=== PATIENT | female | born 1950 | race Native Hawaiian/Other Pacific Islander ===

== ENCOUNTER → 2016-10-22 | Outpatient (CLI) | payer BC ==
[2016-10-22 16:25] LABS: Non-African American GFR(MDRD) >60 (>60 ml/min/1.73 sqM)
--- NOTE | 2016-10-22 21:57 | MR ---
EXAMINATION TYPE: MR angio head wo con DATE OF EXAM: 10/22/2016 5:31 PM COMPARISON: NONE HISTORY: Rt eye turned inward, dizziness, cranial nerve 6 palsy OD TECHNIQUE: Time of flight images focusing on the [place] were performed without contrast. FINDINGS: Source images are reviewed. Three-D rotating images are reviewed Right vertebral artery is not identified within the pzcju-ef-nsoi. Left vertebral artery appears lashell nant. Basilar artery appears unremarkable. Posterior cerebral vasculature is normal. The posterior co mmunicating arteries are widely patent. Distal internal carotid arteries and carotid siphons appear n ormal. Internal carotid arteries bifurcate normally into A1 and M1 segments. The anterior communicating tiffany ry is patent. A2 segments are normal. Middle cerebral artery branches are normal Right ophthalmic artery appears normal. The left ophthalmic artery may have a curvature with redundan cy or a small 2 mm aneurysm. IMPRESSION: 1. 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 2. No additional aneurysms identified. 3. Absence of the right vertebral artery
--- NOTE | 2016-10-22 22:24 | MR ---
EXAMINATION TYPE: MR brain wo/w con DATE OF EXAM: 10/22/2016 5:34 PM COMPARISON: NONE HISTORY: Rt eye turned inward, dizziness, cranial nerve 6 palsy OD CONTRAST: Performed utilizing 14 mL intravenous MultiHance gadolinium contrast. TECHNIQUE: Multiplanar, multiecho imaging on a 3.0 Cristela magnet is performed through the brain. Stud y is performed within 24 hours of arrival to the hospital. The craniovertebral junction is normal. The pituitary is normal. Diffusion-weighted imaging is performed. No abnormal hyperintensity is present to suggest an acute i ntracranial infarct or acute ischemic change. There are scattered punctate deep white matter hyperintensities on inversion recovery weighted sequen laxmi likely related to microvascular ischemic change. These are more prominent within the frontal lobe s. Findings are nonspecific but can be related to microvascular ischemic change among other etiologie s. Ventricles and sulci are appropriate for the patient age. Retention cyst or polyp may be within the right maxillary sinus. Some mucosal thickening is through t he ethmoid air cells. IMPRESSIONS: 1. Scattered punctate chronic appearing microvascular ischemic type changes. 2. See also M[place] same date for suspected 2 mm left ophthalmic aneurysm. 3. Mild mucosal thickening within the right maxillary sinus and ethmoid air cells. Polyp may be withi n the right maxillary sinus.
== END | disposition home or self-care (01) ==
LOC: RADMRIMAIN 16:04
PROVIDERS: ATTEND Ophthalmology
DX: Q27.8 Other specified congenital malformations of peripheral vascular system (principal); J32.0 Chronic maxillary sinusitis; H49.22 Sixth [abducent] nerve palsy, left eye; H53.2 Diplopia
CPT/HCPCS: 82565; 70544; 70553; A9577

== ENCOUNTER → 2016-11-04 | Outpatient (CLI) | payer BC ==
[2016-11-04 12:01] LABS: Hemoglobin A1C 6.9 % (4.2-6.1)
== END | disposition home or self-care (01) ==
LOC: LABWHC1 10:48
PROVIDERS: ATTEND Psychiatry & Neurology Neurology
DX: H49.21 Sixth [abducent] nerve palsy, right eye (principal)
CPT/HCPCS: 36415; 82947; 83036

== ENCOUNTER → 2016-11-10 | Outpatient (CLI) | payer BC ==
--- NOTE | 2016-11-11 11:27 | US ---
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 Patient states problem with her right eye turning in. EXAM MEASUREMENTS: RIGHT: Peak Systolic Velocity (PSV) cm/sec ----- Right CCA: 112.9 ----- Right ICA: 86.6 ----- Right ECA: 73.6 ICA/CCA ratio: 0.8 RIGHT: End Diastole cm/sec ----- Right CCA: 27.3 ----- Right ICA: 37.4 ----- Right ECA: 15.4 LEFT: Peak Systolic Velocity (PSV) cm/sec ----- Left CCA: 72.4 ----- Left ICA: 77.9 ----- Left ECA: 71.3 ICA/CCA ratio: 1.1 LEFT: End Diastole cm/sec ----- Left CCA: 20.8 ----- Left ICA: 24.1 ----- Left ECA: 13.1 VERTEBRALS (direction of flow): Right Vertebral: no flow detected Left Vertebral: Antegrade No significant stenosis seen, no flow detected right vertebral. IMPRESSION: 1. Normal flow without stenosis within the carotid bifurcations. 2. Absence of flow detection within the right vertebral artery Criteria for Assigning % of Stenosis / Diameter reduction (Estimation based on the indirect measurements of the internal carotid artery velocities (ICA PSV). 1. Normal (no stenosis)=ICA PSV < 125 cm/s: ratio < 2.0: ICA EDV<40 cm/s. 2. Less than 50% stenosis=ICA PSV < 125 cm/s: ratio < 2.0: ICA EDV<40 cm/s. 3. 50 to 69% stenosis=ICA PSV of 125 to 230 cm/s: ration 2.0 ? 4.0: ICA EDV 40-100 cm/s. 4. Greater than 70% stenosis to near occlusion= ICA PSV > 230 cm/s: ratio > 4.0: ICA EDV > 100 cm/s. 5. Near occlusion= ICA PSV velocities may be low or undetectable: variable ratio and ICA EDV. 6. Total occlusion=unable to detect flow.
== END | disposition home or self-care (01) ==
LOC: RADUSMAIN 15:45
PROVIDERS: ATTEND Psychiatry & Neurology Neurology
DX: I67.1 Cerebral aneurysm, nonruptured (principal); H49.21 Sixth [abducent] nerve palsy, right eye
CPT/HCPCS: 93880

== ENCOUNTER 2021-03-19 10:13 | Emergency (ER) | payer MEDICARE, BC ==
[2021-03-19] MEDS ORDERED: SODIUM CHLORIDE 0.9% 500 ML 500 ML IV STA (10:35)
[2021-03-19 10:37] LABS: Glucose,Whole Blood 158 mg/dL (75-99)
[2021-03-19 10:45] VITALS: RESP 16
--- NOTE | 2021-03-19 10:46 | ED ---
General Adult HPI - General Chief complaint: Neuro Symptoms/Deficit Stated complaint: Stroke Symptons/Disoriented Time Seen by Provider: 03/19/21 10:15 Source: patient, RN notes reviewed, old records reviewed Mode of arrival: wheelchair Limitations: no limitations - History of Present Illness Initial comments: This is a 70-year-old female who presents emergency Department stating that the last time she saw her face normal was 8:00 last night. Patient got up today and little bit of a headache and once saw her sister and at 9:00 her sister notices no facial droop on the right side. Patient states she still has a very mild headache but not bad at all. Patient denies any fever chills per patient denies any chest pain difficulty breathing or shortness of breath per patient denies any palpitations. Patient denies any abdominal pain patient denies nausea vomiting diarrhea. Patient denies any numbness weakness of any of the extremities. Patient denies any coordination proms. Patient denies any visual disturbance. - Related Data Home Medications Medication Instructions Recorded Confirmed Ascorbic Acid [Vitamin C] 500 mg PO DAILY 03/19/21 03/19/21 Aspirin EC [Ecotrin Low Dose] 81 mg PO DAILY 03/19/21 03/19/21 Atorvastatin [Lipitor] 10 mg PO DAILY 03/19/21 03/19/21 Cholecalciferol [Vitamin D3 (25 25 mcg PO DAILY 03/19/21 03/19/21 Mcg = 1000 Iu)] Enalapril/Hydrochlorothiazide 1 tab PO DAILY 03/19/21 03/19/21 [Enalapril/Hydrochlorothiazide 5-12.5 mg Tab] Krill Oil 500 mg PO DAILY 03/19/21 03/19/21 Latanoprost [Xalatan 0.005%] 1 drop BOTH EYES HS 03/19/21 03/19/21 Vitamin B Complex 1 cap PO DAILY 03/19/21 03/19/21 Zinc 50 mg PO DAILY 03/19/21 03/19/21 cycloSPORINE [Restasis] 1 drop BOTH EYES BID 03/19/21 03/19/21 metFORMIN HCL 500 mg PO DAILY 03/19/21 03/19/21 Previous Rx's Medication Instructions Recorded valACYclovir HCL 1,000 mg PO TID #30 tab 03/19/21 Allergies Allergy/AdvReac Type Severity Reaction Status Date / Time No Known Allergies Allergy Verified 03/19/21 11:16 Review of Systems ROS Statement: Those systems with pertinent positive or pertinent negative responses have been documented in the HPI. ROS Other: All systems not noted in ROS Statement are negative. Past Medical History Past Medical History: Diabetes Mellitus, Hypertension History of Any Multi-Drug Resistant Organisms: None Reported Past Surgical History: No Surgical Hx Reported Past Psychological History: No Psychological Hx Reported Smoking Status: Former smoker Past Alcohol Use History: Rare Past Drug Use History: None Reported General Exam - General Exam Comments Initial Comments: GENERAL: Patient is well-developed and well-nourished. Patient is nontoxic and well- hydrated and is in mild distress. ENT: Neck is soft and supple. No significant lymphadenopathy is noted. Oropharynx is clear. Moist mucous membranes. Neck has full range of motion without eliciting any pain. EYES: The sclera were anicteric and conjunctiva were pink and moist. Extraocular movements were intact and pupils were equal round and reactive to light. Eyelids were unremarkable. PULMONARY: Unlabored respirations. Good breath sounds bilaterally. No audible rales rhonchi or wheezing was noted. CARDIOVASCULAR: There is a regular rate and rhythm without any murmurs gallops or rubs. ABDOMEN: Soft and nontender with normal bowel sounds. SKIN: Skin is clear with no lesions or rashes and otherwise unremarkable. NEUROLOGIC: Patient is alert and oriented x3. Patient has left-sided facial droop and it includes the forehead. Motor and sensory are also intact. Normal speech, volume and content. Symmetrical smile. MUSCULOSKELETAL: Normal extremities with adequate strength and full range of motion. LYMPHATICS: No significant lymphadenopathy is noted PSYCHIATRIC: Normal psychiatric evaluation. Limitations: no limitations Course Vital Signs 03/19/21 03/19/21 03/19/21 10:14 10:40 11:51 Temperature 98.0 F 97.9 F Pulse Rate 74 65 61 Respiratory 18 16 16 Rate Blood Pressure 211/101 189/90 183/91 O2 Sat by Pulse 99 98 97 Oximetry Medical Decision Making - Medical Decision Making EKG shows normal sinus rhythm at 73 bpm ID interval 160 QRS is 90 QT interval 380 QTC is 427. Patient's EKG shows no ST segment elevation or depression. CT of the brain showed no acute abnormality. CTA of the head and neck showed no acute abnormality. Dr. 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 - Lab Data Result diagrams: 03/19/21 10:38 03/19/21 10:38 Lab Results 03/19/21 03/19/21 03/19/21 Range/Units 10:35 10:38 10:38 WBC 6.0 (3.8-10.6) k/uL RBC 4.42 (3.80-5.40) m/uL Hgb 14.0 (11.4-16.0) gm/dL Hct 41.4 (34.0-46.0) % MCV 93.7 (80.0-100.0) fL MCH 31.8 (25.0-35.0) pg MCHC 33.9 (31.0-37.0) g/dL RDW 12.5 (11.5-15.5) % Plt Count 261 (150-450) k/uL MPV 7.3 Neutrophils % 64 % Lymphocytes % 26 % Monocytes % 6 % Eosinophils % 1 % Basophils % 1 % Neutrophils # 3.9 (1.3-7.7) k/uL Lymphocytes # 1.6 (1.0-4.8) k/uL Monocytes # 0.4 (0-1.0) k/uL Eosinophils # 0.1 (0-0.7) k/uL Basophils # 0.0 (0-0.2) k/uL PT 10.0 (9.0-12.0) sec INR 0.9 (<1.2) APTT 22.2 (22.0-30.0) sec Sodium (137-145) mmol/L Potassium (3.5-5.1) mmol/L Chloride (98-107) mmol/L Carbon Dioxide (22-30) mmol/L Anion Gap mmol/L BUN (7-17) mg/dL Creatinine (0.52-1.04) mg/dL Est GFR (CKD-EPI)AfAm (>60 ml/min/1.73 sqM) Est GFR (CKD-EPI)NonAf (>60 ml/min/1.73 sqM) Glucose (74-99) mg/dL POC Glucose (mg/dL) 158 H (75-99) mg/dL POC Glu Javascript Programmer ID Raymond Gracia Calcium (8.4-10.2) mg/dL Total Bilirubin (0.2-1.3) mg/dL AST (14-36) U/L ALT (4-34) U/L Alkaline Phosphatase (38-126) U/L Troponin I (0.000-0.034) ng/mL Total Protein (6.3-8.2) g/dL Albumin (3.5-5.0) g/dL 03/19/21 03/19/21 Range/Units 10:38 10:38 WBC (3.8-10.6) k/uL RBC (3.80-5.40) m/uL Hgb (11.4-16.0) gm/dL Hct (34.0-46.0) % MCV (80.0-100.0) fL MCH (25.0-35.0) pg MCHC (31.0-37.0) g/dL RDW (11.5-15.5) % Plt Count (150-450) k/uL MPV Neutrophils % % Lymphocytes % % Monocytes % % Eosinophils % % Basophils % % Neutrophils # (1.3-7.7) k/uL Lymphocytes # (1.0-4.8) k/uL Monocytes # (0-1.0) k/uL Eosinophils # (0-0.7) k/uL Basophils # (0-0.2) k/uL PT (9.0-12.0) sec INR (<1.2) APTT (22.0-30.0) sec Sodium 138 (137-145) mmol/L Potassium 4.1 (3.5-5.1) mmol/L Chloride 105 (98-107) mmol/L Carbon Dioxide 25 (22-30) mmol/L Anion Gap 8 mmol/L BUN 14 (7-17) mg/dL Creatinine 0.57 (0.52-1.04) mg/dL Est GFR (CKD-EPI)AfAm >90 (>60 ml/min/1.73 sqM) Est GFR (CKD-EPI)NonAf >90 (>60 ml/min/1.73 sqM) Glucose 150 H (74-99) mg/dL POC Glucose (mg/dL) (75-99) mg/dL POC Glu Javascript Programmer ID Calcium 9.9 (8.4-10.2) mg/dL Total Bilirubin 0.8 (0.2-1.3) mg/dL AST 37 H (14-36) U/L ALT 30 (4-34) U/L Alkaline Phosphatase 95 (38-126) U/L Troponin I <0.012 (0.000-0.034) ng/mL Total Protein 7.3 (6.3-8.2) g/dL Albumin 4.6 (3.5-5.0) g/dL Disposition Clinical Impression: Gimenez's palsy Disposition: HOME SELF-CARE Condition: Good Prescriptions: valACYclovir HCL 1,000 mg PO TID #30 tab Is patient prescribed a controlled substance at d/c from ED?: No Referrals: Ubaldo Velez MD [Primary Care Provider] - 1-2 days Time of Disposition: 13:02
--- NOTE | 2021-03-19 10:59 | CT ---
EXAMINATION TYPE: CT brain wo con for TPA DATE OF EXAM: 03/19/2021 HISTORY: Rt sided facial droop CT DLP: 999.4 mGycm. Automated Exposure Control for Dose Reduction was Utilized. TECHNIQUE: CT scan of the head is performed without contrast. COMPARISON: MRI brain October 22, 2016. FINDINGS: There is no acute intracranial hemorrhage or midline shift identified. There is mild diff use ventricular and sulcal prominence consistent with diffuse age-related cerebral atrophy. Jones-whit e matter differentiation is fairly well maintained. The globes are intact and the visualized sinuses are clear. IMPRESSION: No acute intracranial hemorrhage or midline shift. No significant change from prior MRI.
[2021-03-19 11:07] LABS: ALT 30 U/L (4-34); AST 37 U/L (14-36); African American GFR (CKD) >90 (>60 ml/min/1.73 sqM); Albumin 4.6 g/dL (3.5-5.0); Alkaline Phosphatase 95 U/L (38-126); Anion Gap 8 mmol/L; Blood Urea Nitrogen 14 mg/dL (7-17); Calcium 9.9 mg/dL (8.4-10.2); Carbon Dioxide 25 mmol/L (22-30); Chloride 105 mmol/L (98-107); Glucose 150 mg/dL (74-99); Non-African American GFR(CKD) >90 (>60 ml/min/1.73 sqM); Potassium 4.1 mmol/L (3.5-5.1); Sodium 138 mmol/L (137-145); Total Bilirubin 0.8 mg/dL (0.2-1.3); Total Protein 7.3 g/dL (6.3-8.2)
[2021-03-19 11:08] LABS: Basophils % (A) 1 %; Eosinophils # (A) 0.1 k/uL (0-0.7); Eosinophils % (A) 1 %; HCT 41.4 % (34.0-46.0); Lymphocytes # (A) 1.6 k/uL (1.0-4.8); Lymphocytes % (A) 26 %; MCH 31.8 pg (25.0-35.0); MCHC 33.9 g/dL (31.0-37.0); MCV 93.7 fL (80.0-100.0); Mean Platelet Volume 7.3; Monocytes # (A) 0.4 k/uL (0-1.0); Monocytes % (A) 6 %; Neutrophils # (A) 3.9 k/uL (1.3-7.7); Neutrophils % (A) 64 %; Platelet Count 261 k/uL (150-450); RBC 4.42 m/uL (3.80-5.40); RDW 12.5 % (11.5-15.5)
[2021-03-19 11:21] LABS: INR 0.9 (<1.2); Partial Thromboplastin Time 22.2 sec (22.0-30.0)
--- NOTE | 2021-03-19 11:28 | CT ---
EXAMINATION TYPE: CT angio head neck DATE OF EXAM: 03/19/2021 HISTORY: Right facial droop COMPARISON: MRA head October 22, 2016 CT DLP: 399 mGycm. Automated Exposure Control for Dose Reduction was Utilized. TECHNIQUE: CTA scan of the head and neck are performed with IV Contrast, patient injected with 65 mL of Isovue 370, axial images are obtained, coronal and sagittal reformatted images are reviewed. 3D r econstructed images are created on an independent workstation and reviewed. FINDINGS: Carotid/Vascular Structures: Normal 3 vessel origins from aortic arch . Mild peripheral mixed plaque. No significant stenosis. Normal origin right brachiocephalic artery right common carotid artery with mild to moderate peripheral calcified plaque at the origin. No significant stenosis. Remainder of bi lateral common carotid artery shows tortuous course without significant plaque or stenosis. Mild mixe d plaque left carotid bulb extends into proximal internal carotid artery without significant stenosis . More moderate peripheral mixed plaque proximal right internal carotid artery without significant st enosis. Patent external carotid arteries bilaterally without significant stenosis. There is small caliber right vertebral artery which becomes occluded or hypoplastic distally. Patent left vertebral artery fills the basilar artery. Small caliber basilar artery redemonstrated. Hypoplas tic bilateral P1 segments with filling of the bilateral P2 segments due to patent posterior communica ting arteries similar to prior MRI. Patent anterior communicating artery redemonstrated. No significa nt focal stenosis or aneurysm in the anterior circulation. Area of possible aneurysm on MRA head linden esponds to patent but tortuous left superior ophthalmic artery. Other: Subcentimeter hypodense right thyroid nodule lower pole level axial image 25. There is 1.7 cm anterior inferior right maxillary sinus polyp axial image 61. Levoconvex scoliosis centered upper thoracic spine. Moderate disc space narrowing and spurring C6-C7 level. Some prominent but subcentimeter lymph nodes scattered throughout the neck bilaterally are noted. No greater than 1 cm neck adenopathy clearly seen. IMPRESSION: No significant stenosis in common or internal carotid arteries bilaterally. Small calibe r basilar artery redemonstrated. No significant stenosis at level of [place]. NASCET criteria was used in interpretation of this exam?
[2021-03-19] MEDS ORDERED: LORazepam 2 MG/ML INJ IV STA (11:33)
--- NOTE | 2021-03-19 12:44 | XR ---
EXAMINATION TYPE: XR chest 2V DATE OF EXAM: 03/19/2021 COMPARISON: None INDICATION: Altered mental status TECHNIQUE: Frontal and lateral views of the chest are obtained. FINDINGS: The heart size is normal. The pulmonary vasculature is normal. The lungs are clear. IMPRESSION: 1. No acute pulmonary process.
[2021-03-19 13:09] VITALS: BP 145/77; PULSE 71; TEMP 98.2
--- NOTE | 2021-03-19 18:28 | P.CNNES ---
History of Present Illness Consult date: 03/19/21 Requesting physician: Hernan Luciano Reason for Consult: Possible Gimenez's palsy. History of Present Illness: Patient is a 70-year-old female came to the hospital today at 10:40 AM for acute onset of right facial weakness. Patient states that last night she went to bed, and had a slight headache pointing to the bifrontal region. She felt like it was a sinus headache. She took Tylenol and went to bed. She did not sleep well. She got up this morning, and felt slightly dizzy, felt slightly tired. Her tkoqar-il-btb noticed that her face was not right, therefore brought her to the hospital. She denies any focal numbness or tingling of her upper or lower extremities. No slurred speech. No double vision. Denies any changes in taste sensation. She does note slight excessive lacrimation on the right. Patient underwent computed tomography scan of the head which revealed no acute process. No significant change from prior MRI. Paranasal sinuses are clear. CTA of head and neck revealed no significant stenosis in common or internal carotid arteries bilaterally. Small caliber basilar artery re-demonstrated when compared to previous MRA. No significant stenosis at level of [place]. Chest x-ray showed no acute process. EKG with normal sinus rhythm. Patient's blood test shows normal CBC, PT/PTT, normal Chem-7. AST is 37, ALT 30. Troponin negative. Patient has history of diabetes for last 2 years, also has hypertension, hyperlipidemia. She takes Lipitor, metformin, enalapril, multivitamins and aspirin 81 mg daily. She denies any tobacco or alcohol use. Patient has history of right sixth nerve palsy about a year ago. She feels her hearing is slightly muffled on the right side, as if the voice is slightly distant. Patient's and son were present in the ER. Review of Systems As above in detail. Patient denies any balance issues. Patient denies any numbness, tingling of upper or lower extremities or facial region, focal weakness involving extremities. No chest pain, no abdominal pain nausea vomiting diarrhea. No fever or chills. She had history of cataract surgery and uses eyedrops. No sinus issues lately. She uses Flonase. Past Medical History Past Medical History: Diabetes Mellitus, Hypertension History of Any Multi-Drug Resistant Organisms: None Reported Past Surgical History: No Surgical Hx Reported Past Psychological History: No Psychological Hx Reported Smoking Status: Former smoker Past Alcohol Use History: Rare Past Drug Use History: None Reported Medications and Allergies Home Medications Medication Instructions Recorded Confirmed Type Ascorbic Acid [Vitamin C] 500 mg PO DAILY 03/19/21 03/19/21 History Aspirin EC [Ecotrin Low Dose] 81 mg PO DAILY 03/19/21 03/19/21 History Atorvastatin [Lipitor] 10 mg PO DAILY 03/19/21 03/19/21 History Cholecalciferol [Vitamin D3 (25 25 mcg PO DAILY 03/19/21 03/19/21 History Mcg = 1000 Iu)] Enalapril/Hydrochlorothiazide 1 tab PO DAILY 03/19/21 03/19/21 History [Enalapril/Hydrochlorothiazide 5-12.5 mg Tab] Krill Oil 500 mg PO DAILY 03/19/21 03/19/21 History Latanoprost [Xalatan 0.005%] 1 drop BOTH EYES HS 03/19/21 03/19/21 History Vitamin B Complex 1 cap PO DAILY 03/19/21 03/19/21 History Zinc 50 mg PO DAILY 03/19/21 03/19/21 History cycloSPORINE [Restasis] 1 drop BOTH EYES BID 03/19/21 03/19/21 History metFORMIN HCL 500 mg PO DAILY 03/19/21 03/19/21 History valACYclovir HCL 1,000 mg PO TID #30 tab 03/19/21 Rx Allergies Allergy/AdvReac Type Severity Reaction Status Date / Time No Known Allergies Allergy Verified 03/19/21 11:16 Physical Examination - Vital Signs Vital Signs: Vital Signs Temp Pulse Resp BP Pulse Ox 03/19/21 13:08 98.2 F 71 16 145/77 97 03/19/21 11:51 97.9 F 61 16 183/91 97 03/19/21 10:40 65 16 189/90 98 03/19/21 10:14 98.0 F 74 18 211/101 99 Intake and Output 03/19/21 03/19/21 03/19/21 06:59 14:59 22:59 Other: Weight 68.039 kg Patient is an elderly female, in no acute distress. Patient is alert awake oriented to time place and person. Speech and language functions are normal. Attention, concentration and fund of knowledge is adequate. No aphasia or dysarthria. On cranial examination, pupils are round and reacting to light, visual bergman are full on confrontation, extraocular muscles are intact with no nystagmus. Patient has right facial weakness, peripheral type, with significantly decreased wrinkling of the right forehead, right eye closure and lower facial region. Her tongue protrudes to the midline. Palatal elevation and sensation normal, hearing and shoulder shrug normal, facial sensation normal. Shoulder shrug normal. Otologic examination revealed dried, slightly scaly, retracted right eardrum. No vesicle. On muscle strength testing, there is no pronator drift and the strength is normal in arms and legs distally and proximally. Deep tendon reflexes are symmetric, 1 at the biceps, 1+ brachioradialis, 2 at knees, 2 ankles and plantars downgoing. Sensory to touch is equal with no neglect. Cerebellar function showed no ataxia for [id number] testing. No dysdiadochokinesia. Tone and bulk of muscles normal. Gait deferred. On general examination, there is no carotid bruit or murmur, S1-S2 audible. Abdomen is soft nontender. Chest is clear. Peripheral pulses are present. No edema. Results - Laboratory Findings CBC and BMP: 03/19/21 10:38 03/19/21 10:38 Abnormal Lab Findings: Abnormal Labs 03/19/21 03/19/21 10:35 10:38 Glucose 150 H POC Glucose (mg/dL) 158 H AST 37 H Assessment and Plan Assessment: * Right facial weakness, peripheral type. 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 * Hypertension. * Diabetes * Hyperlipidemia Plan: * Discussed with Dr. Luciano. Clinically it appears Gimenez's palsy. Rest of the examination is nonfocal. * Patient will be started on prednisone 60 mg daily for 7 days, and then decrease by 10 mg daily until off. * Valtrex 1 g 3 times a day for 7 days. * Artificial tears every 2 hours. * Continue aspirin 81 mg and statins. * Discussed with patient's son and in detail. Addendum 6 PM: When I saw the patient in the ER, her blood pressure was 145/77. At the time of this dictation, I noticed her initial blood pressure on arrival to ER was 211/101. I called patient's home, and spoke to patient and also her [id number], who is a nurse. She provided me with additional piece of information, which was not given in the ER. Patient has been feeling dizzy off and on. She has been feeling off balance/stumbles (declined by patient in the ER). She has been having some facial sensation is if something is being blocked in her face. I had her [id number] check blood pressure, which was over 180 systolic. Recommended to give her full aspirin at home and bring her back to ER for further evaluation. Patient probably will need MRI of the brain to rule out CVA. Spoke to Dr. Toledo about her arrival to the ER.
== END 2021-03-19 13:24 | disposition home or self-care (01) ==
LOC: EC 10:13
DX: G51.0 Bell's palsy (principal); E11.9 Type 2 diabetes mellitus without complications; I10 Essential (primary) hypertension; Z79.82 Long term (current) use of aspirin; Z79.84 Long term (current) use of oral hypoglycemic drugs; Z79.899 Other long term (current) drug therapy; Z87.891 Personal history of nicotine dependence
CPT/HCPCS: 36415; 93005; 80053; 84484; 85025; 85610; 85730; 71046; 70496; 70450; 70498; 99285; 96374; J2060; Q9967

== ENCOUNTER 2021-03-19 18:58 | Observation (INO) | payer BC, MEDICARE ==
--- NOTE | 2021-03-19 19:51 | ED ---
General Adult HPI - General Chief complaint: Recheck/Abnormal Lab/Rx Stated complaint: revisit - abn labs Time Seen by Provider: 03/19/21 19:15 Source: patient, RN notes reviewed, old records reviewed Mode of arrival: ambulatory Limitations: no limitations - History of Present Illness Initial comments: 70-year-old female who had been seen in the emergency department earlier in the day, diagnosed with a Gimenez's palsy is returning for reevaluation. The neurologist Dr. Turner had evaluated the patient and the initial recommendation was for discharge however after review of the medical record he did feel that an MRI was appropriate for this patient as well as dual antiplatelet treatment. She had been prescribed valacyclovir and prednisone for Gimenez's palsy. She denies any new symptoms. She feels some generalized weakness and mild right- sided headache. She had received the CT CT angiography, chest x-ray, blood testing and EKG. These results are available for review at the time my initial evaluation. She denies any limb weakness or numbness. Denies fever. Denies abdominal pain nausea vomiting. - Related Data Home Medications Medication Instructions Recorded Confirmed Ascorbic Acid [Vitamin C] 500 mg PO DAILY 03/19/21 03/19/21 Aspirin EC [Ecotrin Low Dose] 81 mg PO DAILY 03/19/21 03/19/21 Atorvastatin [Lipitor] 10 mg PO DAILY 03/19/21 03/19/21 Cholecalciferol [Vitamin D3 (25 25 mcg PO DAILY 03/19/21 03/19/21 Mcg = 1000 Iu)] Enalapril/Hydrochlorothiazide 1 tab PO DAILY 03/19/21 03/19/21 [Enalapril/Hydrochlorothiazide 5-12.5 mg Tab] Krill Oil 500 mg PO DAILY 03/19/21 03/19/21 Latanoprost [Xalatan 0.005%] 1 drop BOTH EYES HS 03/19/21 03/19/21 Vitamin B Complex 1 cap PO DAILY 03/19/21 03/19/21 Zinc 50 mg PO DAILY 03/19/21 03/19/21 cycloSPORINE [Restasis] 1 drop BOTH EYES BID 03/19/21 03/19/21 metFORMIN HCL 500 mg PO DAILY 03/19/21 03/19/21 Previous Rx's Medication Instructions Recorded valACYclovir HCL 1,000 mg PO TID #30 tab 03/19/21 Allergies Allergy/AdvReac Type Severity Reaction Status Date / Time No Known Allergies Allergy Verified 03/19/21 11:16 Review of Systems ROS Statement: Those systems with pertinent positive or pertinent negative responses have been documented in the HPI. ROS Other: All systems not noted in ROS Statement are negative. Past Medical History Past Medical History: Diabetes Mellitus, Hypertension History of Any Multi-Drug Resistant Organisms: None Reported Past Surgical History: No Surgical Hx Reported Past Psychological History: No Psychological Hx Reported Smoking Status: Former smoker Past Alcohol Use History: Rare Past Drug Use History: None Reported General Exam Limitations: no limitations General appearance: alert, in no apparent distress Head exam: Present: atraumatic Eye exam: Present: normal appearance, PERRL ENT exam: Present: mucous membranes moist Neck exam: Present: normal inspection. Absent: tenderness, meningismus Respiratory exam: Present: normal lung sounds bilaterally. Absent: respiratory distress, wheezes, rales Cardiovascular Exam: Present: regular rate, normal rhythm GI/Abdominal exam: Present: soft. Absent: distended, tenderness, guarding Extremities exam: Present: normal inspection, normal capillary refill. Absent: pedal edema Neurological exam: Present: alert, motor sensory deficit (Patient has right- sided facial weakness both upper and lower. No other focal findings. Normal speech.). Absent: CN II-XII intact Psychiatric exam: Present: normal affect, normal mood Skin exam: Present: warm, dry, intact Course Vital Signs 03/19/21 19:19 Temperature 99.1 F Pulse Rate 73 Respiratory 17 Rate Blood Pressure 146/74 O2 Sat by Pulse 96 Oximetry EKG Findings - EKG Comments: EKG Findings:: EKG: Normal sinus rhythm, rate of 69, AK interval 166, QRS duration 82, QTC 473, no ST segment elevation. Medical Decision Making - Medical Decision Making 70-year-old female returning to the emergency department at the recurrent request of neurology. I did evaluate this patient she appears to have no change in her neurologic exam compared to previous documentation. She's given Plavix in the emergency department. MRI will be ordered as well as echocardiogram. She will be admitted to Dr. Dumont with neurology on consult who is aware of this patient. Review of CT was negative for intracranial hemorrhage or mass effect, CT angiography was negative for acute occlusion or stenosis. Chest x-ray was clear. Laboratory testing including CBC, CMP and troponin was negative. Patient's symptoms initially began approximately 24 hours prior to arrival, yesterday evening. Disposition Clinical Impression: Weakness on right side of face Narrative: Rule out CVA Disposition: ADMITTED IP TO THIS HOSP Condition: Stable Is patient prescribed a controlled substance at d/c from ED?: No Referrals: Ubaldo Velez MD [Primary Care Provider] - 1-2 days Decision to Admit Reason: Admit from EC Decision Date: 03/19/21 Decision Time: 19:50
[2021-03-19] MEDS: SODIUM CHLORIDE 0.9% 1,000 ML IV SCH (20:12)
[2021-03-19] MEDS: CLOPIDOGREL 75 MG TAB PO SCH (20:12)
[2021-03-20 03:45] VITALS: RESP 16
[2021-03-20] MEDS: SODIUM CHLORIDE 0.9% 1,000 ML IV SCH (06:56)
[2021-03-20] MEDS ORDERED: ATORVASTATIN 10 MG TAB PO SCH (09:00)
[2021-03-20] MEDS: CLOPIDOGREL 75 MG TAB PO SCH (09:07)
[2021-03-20 09:21] VITALS: TEMP 98.1
[2021-03-20] MEDS ORDERED: hydrALAZINE HCL 25 MG TAB PO PRN (11:34)
--- NOTE | 2021-03-20 11:40 | MR ---
MR brain without contrast HISTORY: Neuro deficit, acute stroke suspected Multiplanar multisequence imaging through the brain. Correlation CT brain 03/19/2021, prior MR brain There is no restricted diffusion to suggest subacute ischemia. There is no hemorrhage or hydrocephalu s. Corpus callosum, pituitary, cervical medullary junction, cerebellopontine angles are normal. There are expected vascular flow voids. Some scattered hyperintensities are present in the periventricular white matter on inversion recovery T2-weighted sequences, approximately 10 lesions are noted, larges t in the left frontal lobe on axial image 16 measures 5 mm, no change from prior MRI. There is inflam matory change within the maxillary sinuses, ethmoid air cells, possible mucus retention cysts in the maxillary sinuses. Orbits show symmetric appearance. Choroidal fissure cysts noted, cystic foci along the right temporal lobe anteriorly is unchanged and may represent small focus of encephalomalacia, l acunar infarct, stable. IMPRESSION: No acute abnormality. Stable brain MRI. Sinus disease.
[2021-03-20] MEDS ORDERED: lisinopriL 20 MG TAB PO SCH (11:45)
[2021-03-20] MEDS ORDERED: ASPIRIN 81 MG PO SCH (12:30)
[2021-03-20] MEDS ORDERED: FAMOTIDINE 20 MG TAB PO SCH (12:30)
[2021-03-20 12:40] LABS: Chol/HDL Ratio 3.31; Cholesterol 139 mg/dL (0-200); LDL Cholesterol,Calculated 65.4 mg/dL (0.0-131.0)
--- NOTE | 2021-03-20 13:46 | P.HPIM ---
History of Present Illness H&P Date: 03/20/21 HISTORY AND PHYSICAL AND DISCHARGE SUMMARY: HISTORY OF PRESENT ILLNESS Is a 70-year-old female patient of Dr. Ubaldo Velez with past medical history of hypertension, hyperlipidemia, diabetes mellitus type 2, glaucoma. Patient states that she knew she had 6 cranial nerve palsy and has been following with Dr. Ross but the symptoms seem to worsen and she came into the emergency center for evaluation. She underwent CAT scan of the brain which revealed no acute intracranial hemorrhage or midline shift. No significant change from prior MRI. CT angiogram of the head and neck revealed no significant stenosis and common or internal carotid arteries bilaterally. Small caliber basilar artery redemonstrated. No significant stenosis at the level of [place]. Chest x-ray shows no acute pulmonary process. Laboratory studies: CBC unremarkable. INR 0.9. Electrolytes and renal function normal. Blood sugar 150. AST 37 otherwise liver function tests normal. Troponin negative. Rotavirus not detected. Kegel strength is 158, LDL 139, HDL 42. Vitamin B12 707. Patient was seen by Dr. Turner for right facial weakness, peripheral type probable Gimenez's palsy. He cleared the patient for discharge with recommendations for prednisone taper, Valtrex, artificial tears and aspirin 81 mg and statins. Subsequently patient's blood pressure was elevated and she was instructed to come back to the hospital and be admitted. She underwent MRI of the brain which came back negative and Dr. Khan's recommended aspirin 81 mg twice daily. Patient will be discharged home today in stable condition. REVIEW OF SYSTEMS Constitutional: No fever, no chills, no night sweats. No weight change. No weakness, fatigue or lethargy. No daytime sleepiness. EENT: No headache. No blurred vision or double vision, no loss of vision. No loss of Hearing, no ringing in the ears, no dizziness. No nasal drainage or congestion. No epistaxis. No sore throat.Right-sided facial weakness Lungs: No shortness of breath, cough, no sputum production. No wheezing. Cardiovascular: No chest pain, no lower extremity edema. No palpitations. No paroxysmal nocturnal dyspnea. No orthopnea. No lightheadedness or dizziness. No syncopal episodes. Abdominal: No abdominal pain. No nausea, vomiting. No diarrhea. No constipation. No bloody or tarry stools.. No loss of appetite. Genitourinary: No dysuria, increased frequency, urgency. No urinary retention. Musculoskeletal: No myalgias. No muscle weakness, no gait dysfunction, no frequent falls. No back pain. No neck pain. Integumentary: No wounds, no lesions. No rash or pruritus. No unusual bruising. No change in hair or nails. Neurologic: No aphasia. No facial droop. No change in mentation. No head injury. No headache. No paralysis. No paresthesia. Psychiatric: No depression. No anxiety. No mood swings. Endocrine: No abnormal blood sugars. No weight change. No excessive sweating or thirst. No cold intolerance. SOCIAL HISTORY Patient was a light smoker and quit 30-40. She drinks alcohol occasionally. She has worked as a paraprotein english teacher and retired 2 years ago. She lives at home with her . FAMILY HISTORY Patient does not know any history on her father. Mother at age 53 from leukemia with history of hypertension and diabetes. Patient has a total of 3 brothers and 6 sisters. One sister has from lymphoma, one from breast cancer. She has 2 sisters with diabetes and hypertension. She has 2 daughters and one has nonconscious [place] lymphoma and one has kidney cancer. Other children have no major medical problems. PHYSICAL EXAMINATION Gen: This is a 70-year-old female resting in bed and appears to be comfortable and in no acute distress. HEENT: Head is atraumatic, normocephalic. Pupils equal, round. Sclerae is anicteric. Right-sided facial weakness. NECK: Supple. No JVD. No lymphadenopathy. No thyromegaly. LUNGS: Clear to auscultation. No wheezes or rhonchi. No intercostal retractions. HEART: Regular rate and rhythm. No murmur. ABDOMEN: Soft. Bowel sounds are present. No masses. No tenderness. EXTREMITIES: No pedal edema. No calf tenderness. NEUROLOGICAL: Patient is awake, alert and oriented x3. Cranial nerves 2 through 12 are grossly intact. ASSESSMENT AND PLAN 1. 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 2. Hypertension. 3. Hyperlipidemia. 4. Glaucoma. Patient placed as OBV status. DISCHARGE PLAN Home. DISCHARGE MEDICATIONS Ascorbic Acid [Vitamin C] 500 mg PO DAILY 03/19/21 [History] Atorvastatin [Lipitor] 10 mg PO DAILY 03/19/21 [History] Cholecalciferol [Vitamin D3 (25 Mcg = 1000 Iu)] 25 mcg PO DAILY 03/19/21 [History] Krill Oil 500 mg PO DAILY 03/19/21 [History] Latanoprost [Xalatan 0.005%] 1 drop BOTH EYES HS 03/19/21 [History] Vitamin B Complex 1 cap PO DAILY 03/19/21 [History] Zinc 50 mg PO DAILY 03/19/21 [History] cycloSPORINE [Restasis] 1 drop BOTH EYES BID 03/19/21 [History] metFORMIN HCL 500 mg PO DAILY 03/19/21 [History] valACYclovir HCL 1,000 mg PO TID #30 tab 03/19/21 [Rx] Aspirin EC [Ecotrin Low Dose] 81 mg PO BID #0 03/20/21 [Rx] Famotidine [Pepcid] 20 mg PO BID #60 tab 03/20/21 [Rx] lisinopriL [Zestril] 20 mg PO DAILY #30 tab 03/20/21 [Rx] Impression and plan of care have been directed as dictated by the signing physician. Anny Gallo nurse practitioner acting as scribe for signing physician. Past Medical History Past Medical History: Diabetes Mellitus, Eye Disorder, Hyperlipidemia, Hypertension Additional Past Medical History / Comment(s): glaucoma History of Any Multi-Drug Resistant Organisms: None Reported Past Surgical History: No Surgical Hx Reported Past Anesthesia/Blood Transfusion Reactions: No Reported Reaction Past Psychological History: No Psychological Hx Reported Smoking Status: Former smoker Past Alcohol Use History: Rare Past Drug Use History: None Reported Medications and Allergies Home Medications Medication Instructions Recorded Confirmed Type Ascorbic Acid [Vitamin C] 500 mg PO DAILY 03/19/21 03/19/21 History Atorvastatin [Lipitor] 10 mg PO DAILY 03/19/21 03/19/21 History Cholecalciferol [Vitamin D3 (25 25 mcg PO DAILY 03/19/21 03/19/21 History Mcg = 1000 Iu)] Krill Oil 500 mg PO DAILY 03/19/21 03/19/21 History Latanoprost [Xalatan 0.005%] 1 drop BOTH EYES HS 03/19/21 03/19/21 History Vitamin B Complex 1 cap PO DAILY 03/19/21 03/19/21 History Zinc 50 mg PO DAILY 03/19/21 03/19/21 History cycloSPORINE [Restasis] 1 drop BOTH EYES BID 03/19/21 03/19/21 History metFORMIN HCL 500 mg PO DAILY 03/19/21 03/19/21 History valACYclovir HCL 1,000 mg PO TID #30 tab 03/19/21 03/19/21 Rx Aspirin EC [Ecotrin Low Dose] 81 mg PO BID #0 03/20/21 03/19/21 Rx Famotidine [Pepcid] 20 mg PO BID #60 tab 03/20/21 Rx lisinopriL [Zestril] 20 mg PO DAILY #30 tab 03/20/21 Rx Allergies Allergy/AdvReac Type Severity Reaction Status Date / Time No Known Allergies Allergy Verified 03/19/21 20:43 Physical Exam Vitals: Vital Signs Temp Pulse Pulse Resp BP BP Pulse Ox 03/20/21 08:34 98.1 F 65 65 16 135/69 100 03/20/21 08:25 98.1 F 65 16 135/69 96 03/20/21 03:44 97.6 F 71 16 129/60 100 03/20/21 02:00 70 18 03/20/21 00:00 70 03/19/21 21:50 97.6 F 66 18 147/70 99 03/19/21 21:02 70 18 127/72 97 03/19/21 19:19 99.1 F 73 17 146/74 96 Intake and Output 03/19/21 03/20/21 03/20/21 22:59 06:59 14:59 Intake Total 240 Balance 240 Intake: Oral 240 Other: Voiding Method Toilet Toilet # Voids 1 2 Weight 66.224 kg 67.6 kg Thrombosis Risk Factor Assmnt - Choose All That Apply Any of the Below Risk Factors Present?: Yes Each Factor Represents 1 point: Obesity (BMI >25) Other Risk Factors: Yes Each Risk Factor Represents 2 Points: Age 61-74 years Other congenital or acquired thrombophilia - If yes, enter type in comment: No (rule out stroke) Thrombosis Risk Factor Assessment Total Risk Factor Score: 3 Thrombosis Risk Factor Assessment Level: Moderate Risk
[2021-03-20 14:11] LABS: Folate, Serum >24.0 ng/mL
[2021-03-20 14:56] VITALS: BP 172/79; PULSE 61
--- NOTE | 2021-03-20 15:02 | P.CNNES ---
History of Present Illness Consult date: 03/20/21 Requesting physician: Donald Doherty Reason for Consult: Right facial weakness History of Present Illness: Patient is a 70-year-old female who was seen in the ER yesterday for possible right Gimenez's palsy. Patient's blood pressure was very highly elevated initially. It was also reported that patient was having dizziness, some paresthesias, therefore patient was asked to return back to the hospital for MRI of the brain. Patient denies any new symptoms. Continues to have right facial weakness, peripheral type. Review of Systems Some dizziness. Right facial weakness. No double vision. No loss of vision. No chest pain or abdominal pain. Past Medical History Past Medical History: Diabetes Mellitus, Eye Disorder, Hyperlipidemia, Hyper tension Additional Past Medical History / Comment(s): glaucoma History of Any Multi-Drug Resistant Organisms: None Reported Past Surgical History: No Surgical Hx Reported Past Anesthesia/Blood Transfusion Reactions: No Reported Reaction Past Psychological History: No Psychological Hx Reported Smoking Status: Former smoker Past Alcohol Use History: Rare Past Drug Use History: None Reported Medications and Allergies Home Medications Medication Instructions Recorded Confirmed Type Ascorbic Acid [Vitamin C] 500 mg PO DAILY 03/19/21 03/19/21 History Atorvastatin [Lipitor] 10 mg PO DAILY 03/19/21 03/19/21 History Cholecalciferol [Vitamin D3 (25 25 mcg PO DAILY 03/19/21 03/19/21 History Mcg = 1000 Iu)] Krill Oil 500 mg PO DAILY 03/19/21 03/19/21 History Latanoprost [Xalatan 0.005%] 1 drop BOTH EYES HS 03/19/21 03/19/21 History Vitamin B Complex 1 cap PO DAILY 03/19/21 03/19/21 History Zinc 50 mg PO DAILY 03/19/21 03/19/21 History cycloSPORINE [Restasis] 1 drop BOTH EYES BID 03/19/21 03/19/21 History metFORMIN HCL 500 mg PO DAILY 03/19/21 03/19/21 History valACYclovir HCL 1,000 mg PO TID #30 tab 03/19/21 03/19/21 Rx Aspirin EC [Ecotrin Low Dose] 81 mg PO BID #0 03/20/21 03/19/21 Rx Famotidine [Pepcid] 20 mg PO BID #60 tab 03/20/21 Rx lisinopriL [Zestril] 20 mg PO DAILY #30 tab 03/20/21 Rx Allergies Allergy/AdvReac Type Severity Reaction Status Date / Time No Known Allergies Allergy Verified 03/19/21 20:43 Physical Examination - Vital Signs Vital Signs: Vital Signs Temp Pulse Pulse Resp BP BP Pulse Ox 03/20/21 08:34 98.1 F 65 65 16 135/69 100 03/20/21 08:25 98.1 F 65 16 135/69 96 03/20/21 03:44 97.6 F 71 16 129/60 100 03/20/21 02:00 70 18 03/20/21 00:00 70 03/19/21 21:50 97.6 F 66 18 147/70 99 03/19/21 21:02 70 18 127/72 97 03/19/21 19:19 99.1 F 73 17 146/74 96 Intake and Output 03/19/21 03/20/21 03/20/21 22:59 06:59 14:59 Intake Total 480 Balance 480 Intake: Oral 480 Other: Voiding Method Toilet Toilet # Voids 1 2 0 Weight 66.224 kg 67.6 kg Patient is an elderly female, in no distress. Patient is alert awake oriented to time place and person. Speech and language functions are normal. Attention, concentration and fund of knowledge is adequate. On cranial examination, pupils are round and reacting to light, visual bergman are full on confrontation, extraocular muscles are intact with no nystagmus. Patient has right facial weakness, peripheral type. Her tongue protrudes to the midline. Palatal elevation and sensation normal, hearing and shoulder shrug normal, facial sensation normal. Shoulder shrug normal. On muscle strength testing, there is no pronator drift and the strength is normal in arms and legs distally and proximally. Deep tendon reflexes are symmetric, 1 at the biceps, 1+ brachioradialis, 2 at the knees, 2 ankles and plantars downgoing. Sensory to touch is equal with no neglect. Cerebellar function showed no ataxia for [id number] testing. No dysdiadochokinesia. Tone and bulk of muscles normal. Gait normal. On general examination, there is no carotid bruit or murmur, S1-S2 audible. Abdomen is soft nontender. Chest is clear. Peripheral pulses are present. No edema. Results - Laboratory Findings Abnormal Lab Findings: Abnormal Labs 03/20/21 07:13 Triglycerides 158.0 H Assessment and Plan Assessment: * Right facial weakness, peripheral type, most likely Gimenez's palsy. * Hypertension * Diabetes * Hyperlipidemia Plan: * MRI of the brain was performed today, which is normal. No acute stroke. * Fasting lipid panel shows cholesterol 139, LDL 65.4, HDL 42 and triglycerides 158. * B12 707, folate > 24.0. Fernandez virus PCR negative. * Hemoglobin A1c pending. * 2-D echo is completed, results pending. * Increase aspirin to 81 mg twice a day. No need to add Plavix at this time, as there is no CVA. * Continue prednisone as prescribed yesterday for Gimenez's palsy and Valtrex. * Pepcid 20 mg twice a day, while patient takes prednisone, to prevent gastric ulcer. * Neurologically clear for discharge. Addendum 03/31/2021: Reviewed ECHO, showed mod concentric LVH, EF 55-60%, LA is severely dilated, mild AV sclerosis. Hemoglobin A1c 7.7. Need to optimize control of DM to target A1c<7.0.
[2021-03-20] MEDS ORDERED: valACYclovir HCL 1,000 MG TABLET PO SCH (16:00)
[2021-03-20] MEDS ORDERED: LATANOPROST 0.005% OPHTH DROPS 2.5 ML BTL BOTH EYES SCH (21:00)
[2021-03-20] MEDS ORDERED: cycloSPORINE 0.05% OPHTH 0.4 ML DROPERETTE BOTH EYES SCH (21:00)
[2021-03-21] MEDS ORDERED: metFORMIN 500 MG TAB PO SCH (09:00)
--- NOTE | 2021-03-21 11:31 | ECHOF ---
Referral Reason:thrombus MEASUREMENTS -------- HEIGHT: 152.4 cm WEIGHT: 67.6 kg BP: RVIDd: 2.6 cm (< 3.3) IVSd: 0.9 cm (0.6 - 1.1) LVIDd: 4.9 cm (3.9 - 5.3) LVPWd: 1.4 cm (0.6 - 1.1) IVSs: 1.4 cm LVIDs: 3.7 cm LVPWs: 1.6 cm LA Diam: 3.1 cm (2.7 - 3.8) LAESV Index (A-L): 42.71 ml/m Ao Diam: 3.1 cm (2.0 - 3.7) AV Cusp: 1.9 cm (1.5 - 2.6) LA Diam: 3.4 cm (2.7 - 3.8) MV EXCURSION: 20.477 mm (> 18.000) MV EF SLOPE: 60 mm/s (70 - 150) EPSS: 0.4 cm MV E [place]: 0.76 m/s MV DecT: 189 ms MV A [place]: 0.95 m/s MV E/A Ratio: 0.81 RAP: 5.00 mmHg RVSP: 26.20 mmHg FINDINGS -------- Sinus rhythm. This was a technically good study. The left ventricular size is normal. There is moderate concentric left ventricular hypertrophy. O verall left ventricular systolic function is normal with, an EF between 55 - 60 %. The right ventricle is normal in size. LA is severely dilated >40 ml/m2 The right atrial size is normal. There is mild aortic valve sclerosis. There is no evidence of aortic regurgitation. Mild mitral annular calcification present. Mild mitral regurgitation is present. The tricuspid valve appears structurally normal. Mild tricuspid regurgitation present. Right vent ricular systolic pressure is normal at < 35 mmHg. There is no pulmonic regurgitation present. The aortic root size is normal. Echo free space may represent effusion or a pericardial fat pad. CONCLUSIONS -------- 1. There is moderate concentric left ventricular hypertrophy. 2. Overall left ventricular systolic function is normal with, an EF between 55 - 60 %. 3. LA is severely dilated >40 ml/m2 4. There is mild aortic valve sclerosis. 5. Mild mitral regurgitation is present. 6. Mild tricuspid regurgitation present. RESOURCING ADVISOR: Louise Plata RDCS
== END 2021-03-20 15:35 | disposition home or self-care (01) ==
LOC: EC 18:58 → INTOOBSV 19:33 → 3SCARD 19:33 → UNDODISIN 03-20 15:35
PROVIDERS: ADMIT Internal Medicine Geriatric Medicine; ATTEND Internal Medicine Geriatric Medicine
DX: H49.21 Sixth [abducent] nerve palsy, right eye (principal); I10 Essential (primary) hypertension; E11.9 Type 2 diabetes mellitus without complications; E78.5 Hyperlipidemia, unspecified; H40.9 Unspecified glaucoma; R51.9 Headache, unspecified; R29.810 Facial weakness; I35.8 Other nonrheumatic aortic valve disorders; E66.9 Obesity, unspecified; Z68.28 Body mass index [BMI] 28.0-28.9, adult; Z20.822 Contact with and (suspected) exposure to COVID-19; Z79.84 Long term (current) use of oral hypoglycemic drugs; Z79.82 Long term (current) use of aspirin; Z79.899 Other long term (current) drug therapy; Z87.891 Personal history of nicotine dependence; Z80.6 Family history of leukemia; Z82.49 Family history of ischemic heart disease and other diseases of the circulatory system; Z83.3 Family history of diabetes mellitus; Z80.3 Family history of malignant neoplasm of breast; Z80.7 Family history of other malignant neoplasms of lymphoid, hematopoietic and related tissues; Z80.51 Family history of malignant neoplasm of kidney
CPT/HCPCS: 99285; 93005; 93306; 97161; 97166; 80061; 82607; 82746; 83036; 87635; 70551; G0378 ×2

== ENCOUNTER → 2021-11-13 | Outpatient (CLI) | payer MEDICARE ==
--- NOTE | 2021-11-13 11:39 | CT ---
EXAMINATION TYPE: CT angio head DATE OF EXAM: 11/13/2021 9:32 AM COMPARISON: Prior MRA brain October 22, [address] Prior CT brain March 19, 2021 HISTORY: Double vision and Palsy CT DLP: 2065 mGycm Automated exposure control for dose reduction was used. TECHNIQUE: Performed without and with IV Contrast, patient injected with 100 ml mL of Isovue 370. 3D reconstructed images are created on an independent workstation and reviewed.. FINDINGS: Noncontrast CT brain shows no acute intracranial hemorrhage or midline shift. Ventricles and sulci ar e normal in size for patient's age. Jones-white matter differentiation is relatively well preserved. T he globes are intact bilaterally. The visualized sinuses redemonstrated mild mucosal thickening of th e anterior ethmoid sinuses bilaterally. 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 Persistent small caliber to the mid to distal basilar artery redemon strated. Hypoplastic bilateral P1 segments with filling of the P2 segments due to patent posterior co mmunicating arteries is redemonstrated originating from the posterior aspect of the distal internal c arotid arteries bilaterally. Anterior circulation shows no new significant focal stenosis or aneurysm . 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 Patent anterior communicating artery having vertical course is redemon strated. IMPRESSION: No aneurysm at the level of the [place]. Correlate for vertebral basilar insuffi ciency. No significant change from prior MRA.
== END | disposition home or self-care (01) ==
LOC: RADCTMAIN 08:13
PROVIDERS: ATTEND Family Medicine
DX: H53.2 Diplopia (principal); H49.03 Third [oculomotor] nerve palsy, bilateral
CPT/HCPCS: 70496; Q9967

== ENCOUNTER → 2022-10-09 | Outpatient (CLI) | payer MEDICARE ==
--- NOTE | 2022-10-09 17:50 | CA ---
Exercise Stress Test Report Name: Denia Childress Exam Date: 10/09/2022 11:26 Exam Location: [facility] Stress Ht (in): 61 Wt (lb): 140 BSA: 1.62 Ordering Phys: Ubaldo Velez MD Referring Phys: DENIA, Technologist: Brad La Age: 72 Gender: F : 1950 Procedure CPT: Indications: I10,E11.9,E78,R07.9 ICD-10 Codes: Patient History: CHEST PRESSURE, DIFFICULTY IN BREATHING, NUMBNESS IN FACE/NECK, HTN, DIABETIC, ELEVATED CHOLESTEROL LEVELS, RHEUMATIC FEVER Medications: ATORVASTATIN, METFORMIN, ENALAPRIL, ASA Meds past 24 hrs: Pretest Chest Pain: STRESS TEST Jan Protocol Exercise Duration (min:sec): 09:[address] Depressions (mm): Angina Score: Ferrera Score: Resting HR (bpm): 86 Peak HR (bpm): 147 Resting BP (mmHg): 139 / 89 Peak BP (mmHg): 212 / 80 MPHR: 148 Target HR: 126 % MPHR: 99 METS: 10.3 Total Dose: Peak Dose: Atropine: Double Product: 82727 BP Response: Stress Termination: Stress Symptoms: NO SYMPTOMS Stress Summary: ECG ANALYSIS Resting ECG: Stress ECG: CONCLUSIONS Exercise stress test Baseline heart rate 72 beats a minute, Baseline blood pressure 139/89 mmHg Baseline telemetry ECG showed sinus rhythm with nonspecific ST-T abnormality in the inferior leads Patient exercised on a Jan protocol for 9 months, achieving a peak heart rate of 147 beats a minute Mildly hypertensive response to exercise Peak blood pressure 112/80 mmHg No ECG evidence for ischemia No arrhythmias Impression Good exercise capacity and a Jan protocol No ECG evidence for ischemia Dr. Tru Clarke MD (Electronically Signed) Final Date: 09 October 2022 17:49
== END | disposition home or self-care (01) ==
LOC: RADNMMAIN 10:42
PROVIDERS: ATTEND Family Medicine
DX: E11.9 Type 2 diabetes mellitus without complications (principal); I10 Essential (primary) hypertension; R07.9 Chest pain, unspecified
CPT/HCPCS: 93017

== ENCOUNTER 2023-05-27 09:28 | Day surgery (SDC) | payer MEDICARE ==
[2023-05-25 13:29] VITALS: BMI 26.4
[~2023-05-27 09:28] MED LIST: LACTATED RINGERS 1,000 ML IV SCH; LIDOCAINE 1% (10MG/ML) FOR IV START INTRADERMA PRN
[2023-05-27 10:37] VITALS: TEMP 96.9
[2023-05-27 10:48] LABS: Glucose,Whole Blood 98 mg/dL (70-110)
[2023-05-27] MEDS ORDERED: PROPOFOL 10 MG/ML 20 ML VIAL IV ONE (11:48)
[2023-05-27] MEDS ORDERED: LIDOCAINE 1% INJ 10MG/ML (20 ML MDV) ONE (11:48)
--- NOTE | 2023-05-27 12:02 | P.PCN ---
Date of Procedure: 05/27/23 Procedure(s) Performed: BRIEF HISTORY: Patient is a 72-year-old pleasant white female scheduled for an elective colonoscopy as a part of screening for colon cancer. PROCEDURE PERFORMED: Colonoscopy with snare polypectomy. PREOPERATIVE DIAGNOSIS: Screening for colon cancer. IV sedation per Anesthesia. PROCEDURE: After informed consent was obtained, the patient, was brought into the endoscopy unit. IV sedation was administered by Anesthesia under continuous monitoring. Digital rectal examination was normal. Initially the Olympus CF-160 flexible video colonoscope was then inserted in the rectum, gradually advanced into the cecum without any difficulty. Careful examination was performed as the scope was gradually being withdrawn. Ileocecal valve and the appendiceal orifice were visualized and appeared normal. Prep was excellent. Mucosa of the cecum, ascending colon, transverse colon, appeared normal. In the descending colon there was a 5 mm sessile polyp that was removed by cold snare polypectomy. Rest of the descending colon, sigmoid colon, and rectum appeared normal. Retroflexion was performed in the rectum and no lesions were seen. The patient tolerated the procedure well. IMPRESSION: 5 mm sessile descending colon polyp status post cold snare polypectomy Rest of the colon appeared normal RECOMMENDATIONS: Findings of this examination were discussed with the patient as well as a family. She was advised to follow with the biopsy results. If the biopsy report adenoma she can have a repeat colonoscopy in 5 years..
[2023-05-27 12:39] VITALS: BP 107/44; PULSE 65; RESP 17
== END 2023-05-27 12:59 | disposition home or self-care (01) ==
LOC: ORWHC2ENDO 09:28
PROVIDERS: ATTEND Internal Medicine Gastroenterology
DX: Z12.11 Encounter for screening for malignant neoplasm of colon (principal); K63.5 Polyp of colon; I10 Essential (primary) hypertension; E78.5 Hyperlipidemia, unspecified; E11.9 Type 2 diabetes mellitus without complications; Z79.899 Other long term (current) drug therapy; Z79.82 Long term (current) use of aspirin
CPT/HCPCS: 88305; 45385; J2001; J2704

== ENCOUNTER → 2023-07-10 | Outpatient (CLI) | payer MEDICARE ==
[2023-07-10 09:24] LABS: African American GFR (CKD) >90 (>60 ml/min/1.73 sqM); Blood Urea Nitrogen 19 mg/dL (7-17); Non-African American GFR(CKD) 88 (>60 ml/min/1.73 sqM)
--- NOTE | 2023-07-10 12:46 | CT ---
CT urogram HISTORY: Gross hematuria. COMPARISON: None. TECHNIQUE: Multiple axial images were obtained through the abdomen and pelvis before and after the un eventful administration nonionic IV contrast material. Multiple postcontrast delayed images were obta ined. Coronal and sagittal reconstructions were generated and reviewed. FINDINGS: Lung bases are clear. On the pre-IV contrast images, there are no renal calcifications or ureteral calcifications. There is surgical absence of gallbladder. There are no focal masses within the liver, pancreas, spleen or adrenal glands and there is no organo megaly. Kidneys excrete contrast promptly and symmetrically and there is no solid renal mass, hydronephrosis or filling defect within the renal collecting systems, ureters or urinary bladder. The bowel loops are normal in caliber and there is no dilatation or obstruction. No inflammatory farfan ges are identified in the bowel wall or mesentery. There is no free intraperitoneal air or fluid. There is no pelvic mass, free fluid, abscess or adenopathy. The osseous structures are intact. IMPRESSION: No significant abnormality seen..
== END | disposition home or self-care (01) ==
LOC: RADCTMAIN 08:50
PROVIDERS: ATTEND Urology
DX: R31.0 Gross hematuria (principal)
CPT/HCPCS: 82565; 84520; 74178; 74400; Q9967

== ENCOUNTER → 2023-12-24 | Outpatient (CLI) | payer MEDICARE ==
--- NOTE | 2023-12-24 10:24 | CT ---
EXAMINATION TYPE: CT sinus wo con DATE OF EXAM: 12/24/2023 COMPARISON: 09/06/2015 HISTORY: 73-year-old female J32.0, chronic maxillary sinus CT DLP: 584 mGycm Automated exposure control for dose reduction was used. TECHNIQUE: Noncontrast axial views of the paranasal sinuses were obtained. Coronal and sagittal refor matted images were obtained. FINDINGS: PARANASAL SINUSES: Redemonstrated 1.6 cm polyp or mucous cyst along the floor of the right maxillary sinus. Additional m ild mucosal thickening throughout the bilateral maxillary sinuses. Evidence of interval medial maxillary antrectomies on both sides. Similar moderate mucosal thickening scattered throughout the bilateral ethmoid air cells. Trace mucosal thickening frontal sinuses unchanged. Sphenoid sinus is relatively clear. There is no air-fluid level. Reactive marlene- osteogenesis is not seen. There is no destruction of the osseous duran of the paranasal sinuses. THE NASAL CAVITY: The osteomeatal complexes are widely patent due to the patient's interval FESS. The nasal septum is not significantly deviated. The imaged brain and orbits are normal in appearance. There is now opacification of the bilateral middle ear cavities and mastoid air cells. Reformatted images confirm above findings. IMPRESSION: 1. Interval FESS with medial maxillary antrectomies. Scattered residual mild to moderate mucosal thic kening throughout the ethmoid air cells and maxillary sinuses. No progressive mucosal thickening or a ir-fluid levels. 2. New opacification of the bilateral middle ear cavities and mastoid air cells. Correlate for any pa in to exclude otomastoiditis.
== END | disposition home or self-care (01) ==
LOC: RADCTMAIN 09:51
PROVIDERS: ATTEND Otolaryngology
DX: J32.0 Chronic maxillary sinusitis (principal)
CPT/HCPCS: 70486

== ENCOUNTER → 2025-01-25 | Outpatient (CLI) | payer MEDICARE ==
--- NOTE | 2025-01-25 15:12 | US ---
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 No nephrolithiasis is seen. No vickie s are identified. The urinary bladder is anechoic. IMPRESSION: Unremarkable study [facility] Jenna Kaye, , 01/25/2025 3:09 PM
== END | disposition home or self-care (01) ==
LOC: RADUSWWP 14:13
PROVIDERS: ATTEND Urology
DX: C67.2 Malignant neoplasm of lateral wall of bladder (principal)
CPT/HCPCS: 76770